=== PATIENT | female | born 1945 | race Caucasian/White ===

== ENCOUNTER → 2017-10-26 | Outpatient (CLI) | payer MEDICARE ==
[~2017-10-26] MED LIST: ALIR150P SQ; AMLO5TAB2 PO; CYCL5TAB PO; ECASA81 PO; HYDR-3516 PO; LATA0.002 EACH EYE; LEVO.15 PO; ROSU20 PO
[2017-10-26 14:03] LABS: AUTOMATED NEUTROPHIL # 5.7 TH/MM3 (1.8-7.7); BASOPHIL # 0.1 TH/MM3 (0-0.2); BASOPHIL % 0.5 % (0.0-2.0); EOSINOPHIL # 0.1 TH/MM3 (0-0.4); HEMATOCRIT 39.7 % (35.0-46.0); HEMO FLAGS DIFF FINAL; LYMPH % 42.3 % (9.0-44.0); LYMPHOCYTE # 4.8 TH/MM3 (1.0-4.8); MEAN CELL VOLUME 89.8 FL (80.0-100.0); MEAN CORPUSCULAR HEMOGLOBIN 28.6 PG (27.0-34.0); MEAN CORPUSCULAR HGB CONC 31.8 % (32.0-36.0); MONO % 6.5 % (0.0-8.0); NEUT % 49.7 % (16.0-70.0); PLATELET COUNT 230 TH/MM3 (150-450); RED BLOOD COUNT 4.42 MIL/MM3 (4.00-5.30); RED CELL DISTRIBUTION WIDTH 15.9 % (11.6-17.2); WHITE BLOOD COUNT 11.4 TH/MM3 (4.0-11.0)
[2017-10-26 14:08] LABS: BLOOD, URINE NEG (NEG); GLUCOSE,URINE NEG (NEG); KETONE, URINE NEG (NEG); MUCUS URINE FEW /lpf (OCC); NITRITE,URINE NEG (NEG); PH, URINE 5.5 (5.0-8.5); SQUAMOUS EPITHELIAL CELL URINE <1 /hpf (0-5); URINE COLOR YELLOW (YELLW/STRAW)
[2017-10-26 14:09] LABS: COMMENT (UR) CULT NOT INDICATED; CULTURE IF INDICATED CULT NOT INDICATED
[2017-10-26 14:23] LABS: BICARBONATE 29.3 MEQ/L (21.0-32.0); POTASSIUM 4.1 MEQ/L (3.5-5.1)
== END ==
LOC: CPRE 12:48
PROVIDERS: ATTEND Obstetrics & Gynecology
DX: Z01.812 Encounter for preprocedural laboratory examination (principal); N81.10 Cystocele, unspecified; N81.6 Rectocele; N81.5 Vaginal enterocele
CPT/HCPCS: 36415; 80051; 81001; 85025

== ENCOUNTER 2017-10-28 12:36 | Observation (INO) | payer MEDICARE, OTHER ==
[~2017-10-28] VITALS: Ht 162.6 cm; Wt 73.2 kg
--- NOTE | 2017-10-28 08:17 | MH ---
cc: ANNA ASHRAF DATE OF ADMISSION 10/28/2017 ADMISSION DIAGNOSIS Cystocele, rectocele, enterocele. HISTORY OF PRESENT ILLNESS A 71-year-old white female para 4-0-0-4 who developed sudden prolapse of tissue per vagina at the end of August and presented for evaluation on 09/18/2017. She is now admitted for surgical correction. PAST MEDICAL HISTORY 1. History of vascular procedures including a right axillary femoral bypass on the right side in 2009, 2. Stent in the renal artery in 2016, 3. Total vaginal hysterectomy in 1971. ALLERGIES IBUPROFEN MEDICATIONS Current, 1. Amlodipine 2. Synthroid 3. Crestor 4. Hydrocodone. 5. Cyclobenzaprine 6. . 7. 8. Eye drops TRANSFUSIONS None. OBSTETRICAL HISTORY Four vaginal deliveries SOCIAL HISTORY Retired. for three years. Alcohol, tobacco, drugs are none. FAMILY HISTORY Noncontributory. PHYSICAL EXAMINATION GENERAL: A well-nourished well-developed white female. VITAL SIGNS: Stable. HEENT: Exam is normal. CHEST: Clear HEART: Regular rate. BREASTS: Symmetrical ABDOMEN: Benign. PELVIC: Vagina shows a cystocele, rectocele and some vault prolapse. ASSESSMENT As above. PLAN She is now admitted for vaginal AP repair and closure of enterocele. She has been cleared by her family doctor for surgery. The risks, benefits and complications including infection, injury, bleeding, recurrent prolapse are explained and accepted. MD YOLI Nails/ /8:20 PM /8:04 AM [id number]
[~2017-10-28 12:36] MED LIST changes: +DEXAMETHASONE SOD PHOS 4 MG/ML VIAL IV ONE; +LIDOCAINE HCL 1% PF 5 ML SYRINGE OTHER ONE; +MIDAZOLAM HCL 2 MG/2 ML VIAL IV ONE; +ONDANSETRON HCL 4 MG/2 ML VIAL IV ONE; +PROPOFOL 200 MG/20 ML AMP IV ONE; +ROCURONIUM INJ 50 MG/5 ML SYRINGE IV PUSH ONE; +ePHEDrine/NS 25 MG/5 ML SYR IV ONE
[2017-10-28] MEDS ORDERED: SODIUM CHLORID 0.9% 500 ML IV PRN (13:30)
[2017-10-28] MEDS ORDERED: LACTATED RINGER'S 1000 ML IV PRN (13:30)
[2017-10-28] MEDS ORDERED: CHLORHEXIDINE GLUCONATE 2 % 1 PACK (2 CLOTHS) TOPICAL PRN (13:30)
[2017-10-28] MEDS ORDERED: METOPROLOL TARTRATE 25 MG TAB PO PRN (13:30)
[2017-10-28] MEDS ORDERED: POVIDONE IODINE 5% (ANTISEPSIS KIT) 4 APPLICATIONS EACH NARE PRN (13:30)
[2017-10-28] MEDS ORDERED: ACETAMINOPHEN 1000 MG/100 ML 100 ML IV SCH (13:45)
[2017-10-28] MEDS ORDERED: ceFAZolin 1,000 MG/NS 100 ML IV SCH ×2 (13:45)
[2017-10-28] MEDS ORDERED: ESTROGENS CONJUGATED VAG CREA 15 APPL/30 GM TUBE ONE (14:54)
[2017-10-28] MEDS ORDERED: DOCUSATE SODIUM 100 MG CAP PO SCH (17:00)
[2017-10-28] MEDS ORDERED: diphenhydrAMINE HCL 25 MG CAP PO PRN (17:00)
[2017-10-28] MEDS ORDERED: ONDANSETRON HCL 4 MG/2 ML VIAL IV PUSH PRN (17:00)
[2017-10-28] MEDS ORDERED: DO NOT ADM ANY ANTICOAGULANT DRUGS PRN (17:07)
[2017-10-28] MEDS: D5-1/2 NS + KCL 20 MEQ INJ 1,000 ML IV SCH (17:25)
[2017-10-28] MEDS ORDERED: ONDANSETRON INJ 8 MG in DEXTROSE 5% IN WATER INJ 50 ML IV PUSH PRN ×2 (17:30)
[2017-10-28] MEDS ORDERED: *morphine SULFATE 8 MG/ML PERIprocedure ONLY ONE (17:33)
[2017-10-28] MEDS ORDERED: *diphenhydrAMINE HCL 50 MG/ML VIAL PERIprocedural Use ONLY ONE (17:39)
[2017-10-28] MEDS ORDERED: CYCLOBENZAPRINE HCL 10 MG TAB PO PRN (18:00)
[2017-10-28] MEDS ORDERED: PILL SPLITTER OTHER PRN (18:00)
[2017-10-28] MEDS: HYDROmorphone HCL PF 1 MG/ML VIAL IV PUSH PRN (18:03)
[2017-10-28] MEDS ORDERED: PROMETHAZINE INJ 25 MG/ML VIAL IM PRN (18:30)
[2017-10-28 18:42] VITALS: BP 169/73; PULSE 80; RESP 18; TEMP 97.9; O2SAT 95
[2017-10-28 20:00] VITALS: BP 145/58; PULSE 73; RESP 16; TEMP 98; O2SAT 94
[2017-10-28] MEDS ORDERED: ZOLPIDEM TARTRATE 5 MG TAB PO PRN (21:00)
[2017-10-28] MEDS ORDERED: amLODIPine BESYLATE 5 MG TAB PO SCH ×2 (21:00→21:45)
[2017-10-28] MEDS ORDERED: LATANOPROST 0.005% OPHT SOLN 2.5 ML BTL EACH EYE SCH (21:00)
[2017-10-28] MEDS ORDERED: ATORVASTATIN 40 MG TAB PO SCH (21:00)
[2017-10-28] MEDS ORDERED: CRESTOR 20 MG PO SCH (21:45)
[2017-10-28] MEDS ORDERED: SYNTHROID 150 MCG PO SCH ×2 (21:45)
[2017-10-28] MEDS: amLODIPine BESYLATE 5 MG TAB PO SCH (22:18)
[2017-10-28] MEDS: ACETAMINOPHEN 1000 MG/100 ML VIAL IV SCH (22:20)
--- NOTE | 2017-10-28 23:34 | MP ---
cc: ANNA ASHRAF DATE OF SURGERY: 10/28/2017 PREOPERATIVE DIAGNOSIS: Cystocele, rectocele, enterocele. POSTOPERATIVE DIAGNOSIS: Cystocele, rectocele, enterocele. ANESTHESIA General LMA. ESTIMATED BLOOD LOSS: 100 cc FLUIDS: One liter Crystalloid. OBJECTIVE FINDINGS Following the induction of adequate general LMA anesthesia, the patient was prepped and draped supine on the operating table, dorsolithotomy position, in sterile fashion with bladder being drained by Mariscal catheterization. The repair was initiated by opening up the perineum with a V-shaped excision of scar tissue. Allis clamps were used for traction and used to undermine the vaginal mucosa with Metzenbaum scissors over the rectocele, enterocele, cystocele and urethrocele. Working anteriorly the vaginal mucosa was in the midline perivesical and periurethral fascia, was well mobilized. The UV junction was plicated with 2-0 Vicryl. Additional sutures placed on the ureterocele, cystocele, the second layer at the UV junction. Excess anterior mucosa was trimmed and the anterior vaginal wall closed with 2-0 Vicryl [id number] stitches. The vaginal cuff was from the enterocele and the rectocele and the perirectal fascia. The enterocele sac was opened and sutured securely with 2-0 Vicryl. The perirectal fascia was now run over the rectocele with a running stitch of 2-0 Vicryl from the apex introitus and tied. Excess posterior vaginal mucosa was trimmed. The posterior vaginal wall was closed with running locking stitch of 2-0 Vicryl from the apex of the vault to the introitus and tied. The perineum reapproximated with interrupted 2-0 Vicryl and running 2-0 Vicryl for the submucosa and skin of the perineum. Inspection revealed no bleeding. The vagina was packed with 2-inch gauze, moistened Premarin cream. Rectal exam was normal. All counts were correct and the patient was awake and taken to the Recovery Room in good condition. MD YOLI Nails/XUAN /5:01 PM /11:18 PM
[2017-10-29] MEDS: HYDROmorphone HCL PF 1 MG/ML VIAL IV PUSH PRN ×2 (00:16→04:36)
[2017-10-29 00:20] VITALS: BP 137/64; PULSE 74; RESP 16; TEMP 98.1; O2SAT 93
[2017-10-29] MEDS: D5-1/2 NS + KCL 20 MEQ INJ 1,000 ML IV SCH ×2 (01:47→10:20)
[2017-10-29 04:42] VITALS: BP 114/58; PULSE 67; RESP 16; TEMP 97.7; O2SAT 95
[2017-10-29] MEDS: ACETAMINOPHEN 1000 MG/100 ML VIAL IV SCH (05:45)
[2017-10-29 05:53] LABS: AUTOMATED NEUTROPHIL # 10.8 TH/MM3 (1.8-7.7); HEMATOCRIT 35.8 % (35.0-46.0); HEMO FLAGS DIFF FINAL; LYMPH % 12.2 % (9.0-44.0); LYMPHOCYTE # 1.6 TH/MM3 (1.0-4.8); MEAN CELL VOLUME 89.9 FL (80.0-100.0); MEAN CORPUSCULAR HEMOGLOBIN 29.1 PG (27.0-34.0); MEAN CORPUSCULAR HGB CONC 32.4 % (32.0-36.0); MONO % 3.7 % (0.0-8.0); NEUT % 84.1 % (16.0-70.0); PLATELET COUNT 240 TH/MM3 (150-450); RED BLOOD COUNT 3.98 MIL/MM3 (4.00-5.30); RED CELL DISTRIBUTION WIDTH 16.2 % (11.6-17.2); WHITE BLOOD COUNT 12.9 TH/MM3 (4.0-11.0)
[2017-10-29] MEDS ORDERED: LEVOTHYROXINE SODIUM 150 MCG TAB PO SCH (06:00)
[2017-10-29 06:10] LABS: BICARBONATE 27.5 MEQ/L (21.0-32.0)
[2017-10-29 08:00] VITALS: BP 123/67; PULSE 68; RESP 16; TEMP 98; O2SAT 98
--- NOTE | 2017-10-29 08:30 | HHI.DCPOC ---
Discharge Care Plan Report Symptoms to Your Doctor -Temperature above 100.5 degrees -Redness, of incision or excessive or foul smelling drainage -Unusual pain or calf pain -Increased vaginal bleeding -Painful or difficulty urinating -Feelings of extreme sadness or anxiety after 2 weeks Goals to Promote Your Health * To prevent worsening of your condition and complications * To maintain your health at the optimal level Directions to Meet Your Goals Take your medications as prescribed Follow your dietary instruction Follow activity as directed Ensure plenty of rest for recovery Drink fluids for hydration Keep your appointments as scheduled Take your immunizations and boosters as scheduled If your symptoms worsen call your PCP, if no PCP go to Urgent Care Center or Emergency Room Smoking is Dangerous to Your Health. Avoid second hand smoke Call the 24-hour crisis hotline for domestic abuse at Bonilla Addison MD Oct 29, 2017 08:30
[2017-10-29] MEDS: amLODIPine BESYLATE 5 MG TAB PO SCH (09:00)
[2017-10-29] MEDS ORDERED: ASPIRIN EC 81 MG TABEC PO SCH (09:00)
--- NOTE | 2017-10-29 10:02 | PD.CONS ---
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 Addison. Hospice is consulted for evaluation patient was noted with her blood pressure. Patient received her medications and blood pressure currently is better controlled. She denies any chest pain or shortness of breath, nausea or vomiting no diarrhea or constipation. Denies change in vision,. Some vaginal bleeding. No fever or chills. Pain is controlled by medications. Review of Systems Except as stated in HPI: all other systems reviewed are Neg Past Family Social History Allergies: Coded Allergies: ibuprofen (Verified Allergy, Severe, Chest Pain, 10/28/17) chocolate flavor (Verified Adverse Reaction, Severe, Nausea/Vomiting, 10/28) Past Medical History hypertension, hyperlipidemia, GERD, hypothyroidism, glaucoma, macular degeneration Past Surgical History veins stripped renal stent Reported Medications Reported Meds & Active Scripts Active Reported Aspirin DR (Aspirin) 81 Mg Tabdr 81 Mg PO DAILY Latanoprost Opth Drops (Latanoprost) 0.005% Drops 1 Drop EACH EYE HS Refrigerate until opened. Praluent Pen (Alirocumab) 150 Mg/Ml Pen.injctr 150 Mg SQ DIRECTED every two weeks Flexeril (Cyclobenzaprine HCl) 5 Mg Tab 5 Mg PO TID PRN Hydrocodone-Acetamin 5-325 mg (Hydrocodone/Acetaminophen) 5 Mg-325 Mg Tablet 1 Tab PO Q6HR PRN Amlodipine (Amlodipine Besylate) 5 Mg Tab 5 Mg PO BID Crestor (Rosuvastatin Calcium) 20 Mg Tab 20 Mg PO HS Synthroid (Levothyroxine Sodium) 150 Mcg Tab 150 Mcg PO DAILY Family History Family history significant for hypertension, diabetes hyperlipidemia, stroke, cancers Social History History of smoking 55 years 1 pack per day. Quit 4 years ago. Denies illicit drug use or alcohol use. Physical Exam Vital Signs Vital Signs Date Time Temp Pulse Resp B/P (MAP) Pulse Ox O2 Delivery O2 Flow Rate FiO2 10/29/17 08:00 98.0 68 16 123/67 (85) 98 10/29/17 04:42 97.7 67 16 114/58 (76) 95 10/29/17 00:20 98.1 74 16 137/64 (88) 93 10/28/17 20:00 98.0 73 16 145/58 (87) 94 10/28/17 18:42 97.9 80 18 169/73 (105) 95 10/28/17 18:15 98.4 71 21 143/65 (91) 96 Nasal Cannula 2 10/28/17 18:00 73 13 170/72 (104) 98 Nasal Cannula 2 10/28/17 17:45 71 12 158/69 (98) 93 Nasal Cannula 2 10/28/17 17:30 74 19 172/73 (106) 100 Nasal Cannula 2 10/28/17 17:15 71 16 166/72 (103) 95 Nasal Cannula 2 10/28/17 17:09 98.4 72 22 157/70 (99) 96 Nasal Cannula 2 10/28/17 13:33 97.6 66 18 154/69 (97) 96 Physical Exam GENERAL: This is a very pleasant well-nourished, well-developed patient, in no apparent distress. SKIN: No rashes, ecchymoses or lesions. Cool and dry. HEAD: Atraumatic. Normocephalic. No temporal or scalp tenderness. EYES: Pupils equal round and reactive. Extraocular motions intact. No scleral icterus. No injection or drainage. ENT: Nose without bleeding, purulent drainage or septal hematoma. Throat without erythema, tonsillar hypertrophy or exudate. Uvula midline. Airway patent. NECK: Trachea midline. No JVD or lymphadenopathy. Supple, nontender, no meningeal signs. CARDIOVASCULAR: Regular rate and rhythm without murmurs, gallops, or rubs. RESPIRATORY: Clear to auscultation. Breath sounds equal bilaterally. No wheezes , rales, or rhonchi. GASTROINTESTINAL: Abdomen soft, non-tender, nondistended. No hepato-splenomegaly , or palpable masses. No guarding. MUSCULOSKELETAL: Extremities without clubbing, cyanosis, or edema. No joint tenderness, effusion, or edema noted. No calf tenderness. Negative Homans sign bilaterally. NEUROLOGICAL: Awake and alert. Cranial nerves II through XII intact. Motor and sensory grossly within normal limits. Five out of 5 muscle strength in all muscle groups. Normal speech. Laboratory Laboratory Tests Test 10/29/17 05:20 White Blood Count 12.9 Red Blood Count 3.98 Hemoglobin 11.6 Hematocrit 35.8 Mean Corpuscular Volume 89.9 Mean Corpuscular Hemoglobin 29.1 Mean Corpuscular Hemoglobin Concent 32.4 Red Cell Distribution Width 16.2 Platelet Count 240 Mean Platelet Volume 8.8 Neutrophils (%) (Auto) 84.1 Lymphocytes (%) (Auto) 12.2 Monocytes (%) (Auto) 3.7 Eosinophils (%) (Auto) 0.0 Basophils (%) (Auto) 0.0 Neutrophils # (Auto) 10.8 Lymphocytes # (Auto) 1.6 Monocytes # (Auto) 0.5 Eosinophils # (Auto) 0.0 Basophils # (Auto) 0.0 CBC Comment DIFF FINAL Differential Comment Blood Urea Nitrogen 8 Creatinine 0.63 Random Glucose 111 Calcium Level 8.4 Sodium Level 142 Potassium Level 4.0 Chloride Level 108 Carbon Dioxide Level 27.5 Anion Gap 7 Estimat Glomerular Filtration Rate 93 Result Diagram: 10/29/17 0520 10/29/17 0520 Assessment and Plan Assessment and Plan Hypertension, noted uncontrolled after the procedure Resume amlodipine. BP is normal at this time Patient is asymptomatic Hyperlipidemia, GERD, hypothyroidism, glaucoma, macular degeneration stable, resume home meds. Monitor Thank you for this consultation Patient is stable medically can be DC from medical standpoint. Discussed Condition With patient,nurse, family at bedside Teodora Jo MD Oct 29, 2017 10:02
== END 2017-10-29 10:28 | disposition home or self-care (01) ==
LOC: HSDC 12:36 → EDUNIT# 14:45 → HSDI 17:00 → H1EA 18:23
PROVIDERS: ADMIT Obstetrics & Gynecology; ATTEND Obstetrics & Gynecology
DX: N99.3 Prolapse of vaginal vault after hysterectomy (principal); N81.6 Rectocele; N81.5 Vaginal enterocele; K21.9 Gastro-esophageal reflux disease without esophagitis; E78.5 Hyperlipidemia, unspecified; E03.9 Hypothyroidism, unspecified
CPT/HCPCS: 00942; 57265; 80048; 85025; 88302; 94150; 96374; 96376; G0378; J0131; J0690; J1100; J1170; J1200; J2250; J2270; J2405; J3010; J3480; J7120